=== PATIENT | female | born 1960 | race African-American/Black ===

== ENCOUNTER → 2016-09-23 | Outpatient (CLI) | payer BC ==
[2016-09-23 09:29] LABS: ABSOLUTE BASOPHILS # (AUTO) 0.1 10^3/uL (0.0-0.2); ABSOLUTE EOSINOPHILS # (AUTO) 0.4 10^3/uL (0.0-0.6); ABSOLUTE LYMPHOCYTES (AUTO) 2.6 10^3/uL (0.5-4.7); ABSOLUTE MONOCYTES (AUTO) 0.4 10^3/uL (0.1-1.4); ABSOLUTE NEUT (AUTO) 2.6 10^3/uL (1.7-8.2); BASOPHILS % (AUTO) 0.9 % (0-2); EOSINOPHILS % (AUTO) 7.1 % (0-6); HEMATOCRIT 39.7 % (36.0-47.0); HGB HCT DIFFERENCE -0.7; LYMPHOCYTES % (AUTO) 42.6 % (13-45); MEAN CORPUSCULAR HEMOGLOBIN 29.7 pg (27.0-33.4); MEAN CORPUSCULAR HGB CONC 32.6 g/dL (32.0-36.0); MEAN CORPUSCULAR VOLUME 91 fl (80-97); MONOCYTES % (AUTO) 6.7 % (3-13); RED BLOOD COUNT 4.36 10^6/uL (3.72-5.28); RED CELL DISTRIBUTION WIDTH 15.3 % (11.5-14.0); SEGMENTED NEUTROPHILS % (AUTO) 42.7 % (42-78)
[2016-09-23 09:49] LABS: ALANINE AMINOTRANSFERASE 37 U/L (9-52); ALBUMIN 4.2 g/dL (3.5-5.0); ALKALINE PHOSPHATASE 71 U/L (38-126); ANION GAP 12 (5-19); ASPARTATE AMINO TRANSFERASE 22 U/L (14-36); BILIRUBIN,TOTAL 0.4 mg/dL (0.2-1.3); BLOOD UREA NITROGEN 22 mg/dL (7-20); CALCIUM 9.7 mg/dL (8.4-10.2); CARBON DIOXIDE 28 mmol/L (22-30); CHLORIDE 102 mmol/L (98-107); CHOLESTEROL 200.28 mg/dL (0-200); CREATININE RESULT 0.59 mg/dL (0.52-1.25); Direct HDL 52 mg/dL (>40); GLUCOSE 149 mg/dL (75-110); POTASSIUM 4.6 mmol/L (3.6-5.0); SODIUM 142.1 mmol/L (137-145); TOTAL PROTEIN 7.3 g/dL (6.3-8.2); TRIGLYCERIDES 125 mg/dL (<150)
[2016-09-23 10:19] LABS: DIRECT LDL 116 mg/dL (<100)
== END ==
LOC: OD 08:29
PROVIDERS: ATTEND Internal Medicine Geriatric Medicine
DX: I10 Essential (primary) hypertension (principal); E78.5 Hyperlipidemia, unspecified; E11.9 Type 2 diabetes mellitus without complications
CPT/HCPCS: 36415; 80053; 80061; 83036; 85025

== ENCOUNTER 2020-06-25 09:17 | Inpatient (IN) | payer SELFPAY ==
[2020-06-25] MEDS ORDERED: NORMAL SALINE 1000 ML 1,000 ML IV ONE ×2 (09:38→10:56)
--- NOTE | 2020-06-25 10:09 | RADIOLOGY REPORT (SQ) ---
EXAM DESCRIPTION: CHEST SINGLE VIEW IMAGES COMPLETED DATE/TIME: 06/25/2020 9:59 am REASON FOR STUDY: sob COMPARISON: None. EXAM PARAMETERS: NUMBER OF VIEWS: One view. TECHNIQUE: Single frontal radiographic view of the chest acquired. RADIATION DOSE: NA LIMITATIONS: None. FINDINGS: LUNGS AND PLEURA: No opacities, masses or pneumothorax. No pleural effusion. MEDIASTINUM AND HILAR STRUCTURES: No masses. Contour normal. HEART AND VASCULAR STRUCTURES: Heart normal in size. Normal vasculature. BONES: No acute findings. HARDWARE: None in the chest. OTHER: No other significant finding. IMPRESSION: NO ACUTE RADIOGRAPHIC FINDING IN THE CHEST. TECHNICAL DOCUMENTATION: JOB ID: [id number] 2010 [employer]- All Rights Reserved Reading location - IP/workstation name: [email or web address]
[2020-06-25 10:11] LABS: ABSOLUTE LYMPHOCYTES (AUTO) 1.5 10^3/uL (0.5-4.7); ABSOLUTE MONOCYTES (AUTO) 0.8 10^3/uL (0.1-1.4); ABSOLUTE NEUT (AUTO) 9.9 10^3/uL (1.7-8.2); BASOPHILS % (AUTO) 0.3 % (0-2); HEMOGLOBIN 17.5 g/dL (12.0-15.5); LYMPHOCYTES % (AUTO) 12.4 % (13-45); MEAN CORPUSCULAR HEMOGLOBIN 30.2 pg (27.0-33.4); MEAN CORPUSCULAR HGB CONC 31.7 g/dL (32.0-36.0); MEAN CORPUSCULAR VOLUME 95 fl (80-97); MONOCYTES % (AUTO) 6.4 % (3-13); PLATELET COUNT 293 10^3/uL (150-450); RED CELL DISTRIBUTION WIDTH 15.1 % (11.5-14.0); SEGMENTED NEUTROPHILS % (AUTO) 80.9 % (42-78); TOTAL CELLS COUNTED % (AUTO) 100 %; WHITE BLOOD COUNT 12.2 10^3/uL (4.0-10.5)
[2020-06-25 10:13] LABS: HEMATOCRIT 55.3 % (36.0-47.0); VENOUS BLOOD BASE EXCESS -1.5 mmol/L; VENOUS BLOOD HCO3 23.5 mmol/L (20-32); VENOUS BLOOD PCO2 40.8 mmHg (35-63); VENOUS BLOOD PH 7.38 (7.30-7.42)
[2020-06-25 10:31] LABS: ALBUMIN 4.8 g/dL (3.5-5.0); ALKALINE PHOSPHATASE 173 U/L (38-126); ASPARTATE AMINO TRANSFERASE 23 U/L (14-36); BILIRUBIN,DIRECT 0.4 mg/dL (0.0-0.4); BILIRUBIN,TOTAL 0.8 mg/dL (0.2-1.3); BLOOD UREA NITROGEN 35 mg/dL (7-20); CALCIUM 11.4 mg/dL (8.4-10.2); POTASSIUM 4.8 mmol/L (3.6-5.0); TOTAL PROTEIN 9.3 g/dL (6.3-8.2)
[2020-06-25 10:43] LABS: CARBON DIOXIDE 20 mmol/L (22-30); CHLORIDE 106 mmol/L (98-107)
[2020-06-25 10:49] LABS: ANION GAP 26 (5-19)
[2020-06-25 11:24] LABS: GLUCOSE 856 mg/dL (75-110)
[2020-06-25] MEDS ORDERED: NORMAL SALINE 100 ML with INSULIN REGULAR, HUMAN 100 UNIT IV PRN ×2 (11:25)
--- NOTE | 2020-06-25 11:32 | ER Document Report ---
ED General - General Chief Complaint: Shortness Of Breath Stated Complaint: DIFFICULTY BREATHING Time Seen by Provider: 06/25/20 09:29 Primary Care Provider: BETHEL ARCHER MD [Primary Care Provider] - Follow up as needed Mode of Arrival: Ambulatory Information source: Patient TRAVEL OUTSIDE OF THE [place] IN LAST 30 DAYS: No - HPI Notes: Patient arrives complaining of fatigue and weakness. She states she is also had diarrhea and some nausea. In addition patient states she has felt somewhat short of breath. She denies any fevers. She states she has not been exposed to anybody with the Covid virus that she knows of. She denies any pain. She denies any history of diabetes. Her fatigue has been constant and severe. Is worse with exertion and better with rest. No cough or cold symptoms. No pain with urination. - Related Data Allergies/Adverse Reactions: No Known Allergies Allergy (Verified 06/25/20 10:11) Past Medical History - General Information source: Patient - Social History Smoking Status: Never Smoker Frequency of alcohol use: None Drug Abuse: None Family History: Reviewed & Not Pertinent Patient has homicidal ideation: No - Past Medical History Cardiac Medical History: Reports: Hx Hypertension Denies: Hx Coronary Artery Disease, Hx Heart Attack Pulmonary Medical History: Denies: Hx Asthma, Hx Bronchitis, Hx COPD, Hx Pneumonia Neurological Medical History: Denies: Hx Cerebrovascular Accident, Hx Seizures Endocrine Medical History: Reports: Hx Diabetes Mellitus Type 2 GI Medical History: Denies: Hx Hepatitis Musculoskeletal Medical History: Denies Hx Arthritis Infectious Medical History: Denies: Hx Hepatitis, Hx HIV, Hx MRSA Past Surgical History: Reports: Hx Section. Denies: Hx Hysterectomy - Immunizations Immunizations up to date: Yes Hx Diphtheria, Pertussis, Tetanus Vaccination: Yes - years ago Review of Systems - Review of Systems Constitutional: Malaise, Weakness. denies: Chills, Fever Cardiovascular: denies: Chest pain, Palpitations Respiratory: Short of breath. denies: Cough -: Yes All other systems reviewed and negative Physical Exam - Vital signs Vitals: Pulse Ox 95 06/25/20 09:19 Interpretation: Normal - General General appearance: Alert, Anxious - HEENT Head: Normocephalic, Atraumatic Eyes: Normal Pupils: PERRL - Respiratory Respiratory status: Tachypnea Chest status: Nontender Breath sounds: Normal Chest palpation: Normal - Cardiovascular Rhythm: Tachycardia Heart sounds: Normal auscultation Murmur: No - Abdominal Inspection: Normal Distension: No distension Bowel sounds: Normal Tenderness: Nontender Organomegaly: No organomegaly - Back Back: Normal, Nontender - Extremities General upper extremity: Normal inspection, Nontender, Normal color, Normal ROM, Normal temperature General lower extremity: Normal inspection, Nontender, Normal color, Normal ROM, Normal temperature, Normal weight bearing. No: Palmer's sign - Neurological Neuro grossly intact: Yes Cognition: Normal Orientation: AAOx4 [place] Coma Scale Eye Opening: Spontaneous [place] Coma Scale Verbal: Oriented [place] Coma Scale Motor: Obeys Commands [place] Coma Scale Total: 15 Speech: Normal Motor strength normal: LUE, RUE, LLE, RLE Sensory: Normal - Psychological Associated symptoms: Normal affect, Normal mood - Skin Skin Temperature: Warm Skin Moisture: Dry Skin Color: Normal Course - Re-evaluation Re-evalutation: 06/25/20 11:33 Patient presents with a primary complaint of weakness and fatigue. Work-up is remarkable for a significantly elevated blood glucose and patient appears to be a new onset diabetic with some early diabetic ketoacidosis. Patient's pH is normal however she is showing a elevated anion gap with a depressed serum bicarb. Patient be started on aggressive fluid replacement as well as an insulin drip. I have contacted the patient's primary doctor who will admit the patient. No obvious infection is present at this time however a urine is pending. - Vital Signs Vital signs: Temp Pulse Resp BP Pulse Ox 97.4 F 121 H 22 H 115/87 H 95 06/25/20 09:30 06/25/20 09:30 06/25/20 09:30 06/25/20 09:30 06/25/20 09:55 - Laboratory Results Result Diagrams: 06/25/20 09:50 06/25/20 09:50 Laboratory Results Interpreted: 06/25/20 06/25/20 06/25/20 09:50 09:50 09:50 WBC 12.2 H RBC 5.80 H Hgb 17.5 H Hct 55.3 H MCHC 31.7 L RDW 15.1 H Lymph % (Auto) 12.4 L Absolute Neuts (auto) 9.9 H Seg Neutrophils % 80.9 H Sodium 151.7 H Carbon Dioxide 20 L Anion Gap 26 H BUN 35 H Glucose 856 H* Lactic Acid 3.2 H Calcium 11.4 H Alkaline Phosphatase 173 H Total Protein 9.3 H Critical Laboratory Results Reviewed: Yes Attending or Supervising Physician who Reviewed Labs: JUAN HASSAN - Radiology Results Radiology Results Interpreted: 06/25/20 11:34 Chest x-ray shows no evidence of infiltrates Critical Radiology Results Reviewed: No Critical Results - EKG Interpretation by Ks EKG shows normal: Sinus rhythm Rate: Tachycardia - 109 Rhythm: NSR Lamy/QRS: No: Right axis deviation, Left axis deviation Critical Care Note - Critical Care Note Total time excluding time spent on procedures (mins): 40 Comments: Approximately 40 minutes of critical care time were spent on this patient with new onset diabetic ketoacidosis and an elevated blood sugar over 800. This time was spent reviewing old records. It was spent talking with biometrics consultant. It is spent during multiple reassessments. It was spent reviewing laboratory values and imaging. Discharge - Discharge Clinical Impression: DKA (diabetic ketoacidoses) Qualifiers: Diabetes mellitus type: type 2 Diabetes mellitus complication detail: without coma Qualified Code(s): E11.10 - Type 2 diabetes mellitus with ketoacidosis without coma Condition: Serious Disposition: ADMITTED INPATIENT Admitting Provider: Jaime Unit Admitted: IMCU Referrals: BETHEL ARCHER MD [Primary Care Provider] - Follow up as needed
--- NOTE | 2020-06-25 11:42 | RADIOLOGY REPORT (SQ) ---
EXAM DESCRIPTION: CT CHEST WITHOUT IMAGES COMPLETED DATE/TIME: 06/25/2020 11:28 am REASON FOR STUDY: sob COMPARISON: Same day radiograph TECHNIQUE: CT scan performed of the chest without intravenous contrast. Images reviewed with lung, soft tissue and bone windows. Reconstructed coronal and sagittal MPR images reviewed. All images st ored on PACS. All CT scanners at this facility use dose modulation, iterative reconstruction, and/or weight based d osing when appropriate to reduce radiation dose to as low as reasonably achievable (ALARA). [facility]: Dose Right [facility]: CareDose [facility]: Dose Right [facility]: Teradose 4D [facility]: TopTechPhoto RADIATION DOSE: CT Rad equipment meets quality standard of care and radiation dose reduction techniq ues were employed. CTDIvol: 5.3 mGy. DLP: 197 mGy-cm. mGy. LIMITATIONS: No technical limitations. FINDINGS: LUNGS AND PLEURA: No masses, infiltrates, or pneumothorax. No pleural effusions or pleura l calcifications. No suspicious nodules or masses. Few sub 4 mm nonspecific nodular opacities. For reference 3 mm left basilar nodule (series 4, image 47). These require no follow-up. HILAR AND MEDIASTINAL STRUCTURES: No identified masses or abnormal nodes. No obvious aneurysm. HEART AND VASCULAR STRUCTURES: No aneurysm. No pericardial effusion. UPPER ABDOMEN: 3.1 cm hypodense lesion within the hepatic dome, indeterminate. There is a focus of c alcification along the periphery. No other acute findings. THYROID AND OTHER SOFT TISSUES: No masses. No adenopathy. BONES: No acute bony abnormality. No suspicious osseous lesions. HARDWARE: None in the chest. OTHER: No other significant findings. IMPRESSION: 1. No evidence of acute intrathoracic process. 2. 3.1 cm hypodense lesion within the right hepatic dome, indeterminate. Comparison with priors if available or multiphase CT or MR could be considered for complete characterization. TECHNICAL DOCUMENTATION: JOB ID: [id number] Quality ID # [id number]: Final reports with documentation of one or more dose reduction techniques (e.g., Au tomated exposure control, adjustment of the mA and/or kV according to patient size, use of iterative reconstruction technique) 2010 [employer]- All Rights Reserved Reading location - IP/workstation name: [email or web address]
[2020-06-25] MEDS ORDERED: INSULIN REG, HUMAN 100 UNIT/ML 3 ML VIAL (PYX) ONE ×2 (12:08→22:49)
[2020-06-25 13:11] LABS: APPEARANCE,URINE CLEAR; BILIRUBIN,URINE NEGATIVE (NEGATIVE); COLOR,URINE LIGHT YELLOW; GLUCOSE, URINE >=1000 mg/dL (NEGATIVE); KETONES,URINE 100 mg/dL (NEGATIVE); PROTEIN,URINE NEGATIVE (NEGATIVE); URINE SPECIFIC GRAVITY 1.038; UROBILINOGEN,URINE NEGATIVE mg/dL (<2.0)
[2020-06-25 13:12] LABS: RBC,URINE 0-1 /HPF
[2020-06-25] MEDS ORDERED: DEXTROSE 50%-WATER 25 GM/50 ML DISP.SYRIN IV PRN ×2 (17:25)
[2020-06-25] MEDS ORDERED: GLUCAGON,HUMAN RECOMB 1 MG INJ IM PRN (17:25)
[2020-06-25] MEDS ORDERED: DEXTROSE 40% GEL 15 GM TUBE PO PRN ×2 (17:25)
--- NOTE | 2020-06-25 17:51 | PDOC H&P ---
History of Present Illness Admission Date/PCP: 06/25/20 12:29 [facility] Patient complains of: Difficulty with breathing History of Present Illness: PIETER FAUSTIN is a 59 year old female patient known to my practice but noncompliant with follow up management evaluation for hypertension and diabetes mellitus type 2 last seen in the office June,. She presented to the ED with several days of worsening generalized weakness, fatigue, nausea, and d iarrhea. She denied any definite abdominal pain or associated vomiting. No fever or chills. No dysuria, urinary frequency, hematuria, or flank pain. She denied any chest pain but reported shortness of breath that worsen with efforts and improved with rest. She denied any palpitation. She denied any cough, nasal or sinus congestion. No associated headache or dizziness but admitted to redness of her eyes that she related to her eye condition for which she is currently using prescribed eye drops. Her initial ED evaluation was significant for severe hyperglycemia with elevated anion gap suggestive diabetic ketoacidosis. There was associated elevated lactic acidosis, electrolyte derangement, leukocytosis, and abnormal urinalysis. She denied exposure to person with acute illness or exposure to COVID-19. Her rapid COVID-19 serology evaluation was reported negative. She was advised hospitalization for further evaluation and management. Her morbidities are as listed below. Past Medical History Cardiac Medical History: Reports: Hypertension Denies: Coronary Artery Disease, Myocardial Infarction Pulmonary Medical History: Denies: Asthma, Bronchitis, Chronic Obstructive Pulmonary Disease (COPD), Pneumonia Neurological Medical History: Denies: Seizures Endocrine Medical History: Reports: Diabetes Mellitus Type 2 GI Medical History: Denies: Hepatitis Musculoskeltal Medical History: Denies: Arthritis Psychiatric Medical History: Denies: Depression Hematology: Reports: Anemia - hx Infectious Medical History: Denies: HIV, Methicillin-Resistant Staph Aureus Past Surgical History Past Surgical History: Reports: Section Denies: Hysterectomy Social History Smoking Status: Never Smoker Frequency of Alcohol Use: None - Advance Directive Resuscitation Status: Full Code Family History Family History: Reviewed & Not Pertinent Parental Family History Reviewed: Yes Children Family History Reviewed: Yes Sibling(s) Family History Reviewed.: Yes Medication/Allergy Home Medications: Lisinopril/Hydrochlorothiazide [Lisinopril-Hctz 10-12.5 mg Tab] 1 each PO DAILY 08/14/14 Simvastatin 20 mg PO QHS 08/14/14 Glimepiride [Amaryl 4 mg Tablet] 4 mg PO DAILY 06/25/20 Latanoprost [Xalatan 0.005% Oph Soln 2.5 ml] 1 drop OU QHS 06/25/20 Loratadine [Claritin] 10 mg PO DAILY 06/25/20 Metformin HCl [Glucophage 500 mg Tablet] 1,000 mg PO BID 06/25/20 Timolol Maleate/Pf [Timolol Maleate 0.5% Eye Drop] 1 drop OU DAILY 06/25/20 Allergies/Adverse Reactions: No Known Allergies Allergy (Verified 06/25/20 10:11) Review of Systems Constitutional: PRESENT: fatigue, weakness. ABSENT: chills, fever(s), headache(s), weight gain, weight loss Eyes: ABSENT: visual disturbances Ears: ABSENT: hearing changes Nose, Mouth, and Throat: ABSENT: headache(s), sore throat Cardiovascular: PRESENT: dyspnea on exertion. ABSENT: chest pain, edema, orthropnea, palpitations Respiratory: PRESENT: dyspnea. ABSENT: cough, hemoptysis Gastrointestinal: PRESENT: diarrhea, nausea. ABSENT: abdominal pain, constipation, hematemesis, hematochezia, vomiting Genitourinary: ABSENT: dysuria, hematuria Musculoskeletal: ABSENT: joint swelling Integumentary: ABSENT: rash, wounds Neurological: ABSENT: abnormal gait, abnormal speech, confusion, dizziness, focal weakness, syncope Psychiatric: ABSENT: anxiety, depression, homidical ideation, suicidal ideation Endocrine: ABSENT: cold intolerance, heat intolerance, polydipsia, polyuria Hematologic/Lymphatic: ABSENT: easy bleeding, easy bruising, lymphadenopathy Allergic/Immunologic: ABSENT: seasonal rhinorrhea Physical Exam Vital Signs: Temp Pulse Resp BP Pulse Ox 98.2 F 104 H 16 115/76 100 06/25/20 13:39 06/25/20 13:39 06/25/20 13:39 06/25/20 13:39 06/25/20 13:39 Intake & Output 06/24/20 06/25/20 06/26/20 06:59 06:59 06:59 Intake Total 2019 Balance 2019 Weight 62.5 kg General appearance: PRESENT: no acute distress, well-developed, well-nourished Head exam: PRESENT: atraumatic, normocephalic Eye exam: PRESENT: conjunctival injection, EOMI, PERRLA. ABSENT: scleral icterus Ear exam: PRESENT: normal external ear exam Mouth exam: PRESENT: moist, tongue midline Neck exam: PRESENT: full ROM. ABSENT: carotid bruit, JVD, lymphadenopathy, thyromegaly Respiratory exam: PRESENT: clear to auscultation christian Cardiovascular exam: PRESENT: RRR, +S1, +S2. ABSENT: diastolic murmur, rubs, systolic murmur Pulses: PRESENT: normal dorsalis pedis pul, +2 pedal pulses bilateral Vascular exam: PRESENT: normal capillary refill GI/Abdominal exam: PRESENT: normal bowel sounds, soft. ABSENT: distended, guarding, mass, organolmegaly, rebound, tenderness Rectal exam: PRESENT: deferred Extremities exam: ABSENT: pedal edema Neurological exam: PRESENT: alert, awake, oriented to person, oriented to place, oriented to time, oriented to situation, CN II-XII grossly intact. ABSENT: motor sensory deficit Psychiatric exam: PRESENT: appropriate affect, normal mood. ABSENT: homicidal ideation, suicidal ideation Skin exam: PRESENT: dry, intact, warm. ABSENT: cyanosis, rash Results Laboratory Results: 06/25/20 09:50 06/25/20 09:50 06/25/20 06/25/20 06/25/20 09:50 09:50 09:50 WBC 12.2 H RBC 5.80 H Hgb 17.5 H Hct 55.3 H MCV 95 MCH 30.2 MCHC 31.7 L RDW 15.1 H Plt Count 293 Seg Neutrophils % 80.9 H VBG pH 7.38 VBG pCO2 40.8 VBG HCO3 23.5 VBG Base Excess -1.5 Sodium 151.7 H Potassium 4.8 Chloride 106 Carbon Dioxide 20 L Anion Gap 26 H BUN 35 H Creatinine 0.81 Est GFR ( Amer) > 60 Glucose 856 H* Lactic Acid Calcium 11.4 H Total Bilirubin 0.8 AST 23 Alkaline Phosphatase 173 H Total Protein 9.3 H Albumin 4.8 Urine Color Urine Appearance Urine pH Ur Specific [place] Urine Protein Urine Glucose (UA) Urine Ketones Urine Blood Ur Squamous Epith Cells 06/25/20 06/25/20 06/25/20 09:50 11:37 12:37 WBC RBC Hgb Hct MCV MCH MCHC RDW Plt Count Seg Neutrophils % VBG pH VBG pCO2 VBG HCO3 VBG Base Excess Sodium Potassium Chloride Carbon Dioxide Anion Gap BUN Creatinine Est GFR ( Amer) Glucose Lactic Acid 3.2 H 1.6 Calcium Total Bilirubin AST Alkaline Phosphatase Total Protein Albumin Urine Color LIGHT YELLOW Urine Appearance CLEAR Urine pH 6.0 Ur Specific [place] 1.038 Urine Protein NEGATIVE Urine Glucose (UA) >=1000 H Urine Ketones 100 H Urine Blood NEGATIVE Ur Squamous Epith Cells FEW 06/25/20 16:05 WBC RBC Hgb Hct MCV MCH MCHC RDW Plt Count Seg Neutrophils % VBG pH VBG pCO2 VBG HCO3 VBG Base Excess Sodium Potassium Chloride Carbon Dioxide Anion Gap BUN Creatinine Est GFR ( Amer) Glucose Lactic Acid 1.3 Calcium Total Bilirubin AST Alkaline Phosphatase Total Protein Albumin Urine Color Urine Appearance Urine pH Ur Specific [place] Urine Protein Urine Glucose (UA) Urine Ketones Urine Blood Ur Squamous Epith Cells 06/25/20 06/25/20 09:50 09:50 Troponin I < 0.012 NT-Pro-B Natriuret Pep 119 Impressions: Chest X-Ray 06/25/20 09:35 IMPRESSION: NO ACUTE RADIOGRAPHIC FINDING IN THE CHEST. Chest CT 06/25/20 10:29 IMPRESSION: 1. No evidence of acute intrathoracic process. 2. 3.1 cm hypodense lesion within the right hepatic dome, indeterminate. Comparison with priors if available or multiphase CT or MR could be considered for complete characterization. Assessment & Plan - Diagnosis (1) DKA (diabetic ketoacidoses) Qualifiers: Diabetes mellitus type: type 2 Diabetes mellitus complication detail: without coma Qualified Code(s): E11.10 - Type 2 diabetes mellitus with ketoacidosis without coma Is this a current diagnosis for this admission?: Yes Plan: See admitting attending physician orders for details about care plan. (2) Diabetes mellitus type 2 in nonobese Is this a current diagnosis for this admission?: Yes Plan: See admitting attending physician orders for details about care plan. (3) HTN (hypertension) Qualifiers: Hypertension type: essential hypertension Qualified Code(s): I10 - Essential (primary) hypertension Is this a current diagnosis for this admission?: Yes Plan: See admitting attending physician orders for details about care plan. (4) Glaucoma Qualifiers: Primary angle closure glaucoma type: unspecified type Laterality: bilateral Is this a current diagnosis for this admission?: Yes Plan: See admitting attending physician orders for details about care plan. - Time Time Spent: 50 to 70 Minutes Medications reviewed and adjusted accordingly: Yes Anticipated Discharge Disposition: Home, Self Care Anticipated Discharge Timeframe: within 72 hours - Inpatient Certification Based on my medical assessment, after consideration of the patient's comorbidities, presenting symptoms, or acuity I expect that the services needed warrant INPATIENT care.: Yes I certify that my determination is in accordance with my understanding of Medicare's requirements for reasonable and necessary INPATIENT services [42 CFR 412.3e].: Yes Medical Necessity: Significant Comorbidiites Make Outpatient Treatment Too Risky, Need Close Monitoring Due to Risk of Patient Decompensation, Need For IV Fluids, Need For Continuous Telemetry Monitoring, Risk of Complication if Not Cared For in Hospital, Risk of Diagnosis Which Will Require Inpatient Eval/Care/Monitoring Post Hospital Care: D/C Communications Technologist Documentation - Plan Summary Plan Summary: See admitting attending physician orders for details about care plan.
[2020-06-25] MEDS: NORMAL SALINE 1000 ML 1,000 ML IV PRN (18:40)
--- NOTE | 2020-06-25 18:45 | EKG REPORT ---
SEVERITY:- ABNORMAL ECG - SINUS TACHYCARDIA RIGHT ATRIAL ABNORMALITY PROBABLE LVH WITH SECONDARY REPOL ABNRM : Confirmed by: Nehal Arguello 25-Jun-2020 18:44:45
[2020-06-25] MEDS: SIMVASTATIN 10 MG TABLET PO SCH (21:03)
[2020-06-25] MEDS: LATANOPROST 0.005% OPH SOLN 2.5 ML OU SCH (21:04)
[2020-06-26 00:11] LABS: ALBUMIN 4.1 g/dL (3.5-5.0); ALKALINE PHOSPHATASE 107 U/L (38-126); ANION GAP 6 (5-19); ASPARTATE AMINO TRANSFERASE 16 U/L (14-36); BILIRUBIN,DIRECT 0.1 mg/dL (0.0-0.4); BILIRUBIN,TOTAL 0.6 mg/dL (0.2-1.3); BLOOD UREA NITROGEN 35 mg/dL (7-20); CALCIUM 10.3 mg/dL (8.4-10.2); CARBON DIOXIDE 29 mmol/L (22-30); CHLORIDE 122 mmol/L (98-107); GLUCOSE 121 mg/dL (75-110); TOTAL PROTEIN 7.9 g/dL (6.3-8.2)
[2020-06-26 00:20] LABS: POTASSIUM 3.4 mmol/L (3.6-5.0)
[2020-06-26] MEDS: PANTOPRAZOLE SODIUM 40 MG TABLET.DR PO SCH (06:14)
[2020-06-26] MEDS: NORMAL SALINE 1000 ML 1,000 ML IV PRN ×2 (06:14→14:16)
[2020-06-26 06:19] LABS: ABSOLUTE LYMPHOCYTES (AUTO) 2.4 10^3/uL (0.5-4.7); ABSOLUTE MONOCYTES (AUTO) 0.9 10^3/uL (0.1-1.4); ABSOLUTE NEUT (AUTO) 11.2 10^3/uL (1.7-8.2); BASOPHILS % (AUTO) 0.3 % (0-2); EOSINOPHILS % (AUTO) 0.2 % (0-6); HEMATOCRIT 46.4 % (36.0-47.0); LYMPHOCYTES % (AUTO) 16.4 % (13-45); MEAN CORPUSCULAR HEMOGLOBIN 29.8 pg (27.0-33.4); MEAN CORPUSCULAR HGB CONC 32.6 g/dL (32.0-36.0); MEAN CORPUSCULAR VOLUME 92 fl (80-97); PLATELET COUNT 219 10^3/uL (150-450); RED BLOOD COUNT 5.07 10^6/uL (3.72-5.28); RED CELL DISTRIBUTION WIDTH 14.6 % (11.5-14.0); SEGMENTED NEUTROPHILS % (AUTO) 77.1 % (42-78); TOTAL CELLS COUNTED % (AUTO) 100 %; WHITE BLOOD COUNT 14.5 10^3/uL (4.0-10.5)
[2020-06-26 06:28] LABS: ALBUMIN 3.8 g/dL (3.5-5.0); ALKALINE PHOSPHATASE 122 U/L (38-126); ANION GAP 14 (5-19); ASPARTATE AMINO TRANSFERASE 20 U/L (14-36); BILIRUBIN,DIRECT 0.3 mg/dL (0.0-0.4); BILIRUBIN,TOTAL 0.8 mg/dL (0.2-1.3); BLOOD UREA NITROGEN 39 mg/dL (7-20); CALCIUM 9.6 mg/dL (8.4-10.2); CARBON DIOXIDE 22 mmol/L (22-30); CHLORIDE 121 mmol/L (98-107); GLUCOSE 386 mg/dL (75-110); TOTAL PROTEIN 7.2 g/dL (6.3-8.2); TRIGLYCERIDES 116 mg/dL (<150)
[2020-06-26 06:32] LABS: HEMOGLOBIN 15.1 g/dL (12.0-15.5)
[2020-06-26 06:39] LABS: DIRECT LDL 206 mg/dL (<100)
[2020-06-26] MEDS: INSULIN LISPRO 100 UNIT/ML 3 ML VIAL SUBCUT SCH ×4 (08:38→21:22)
[2020-06-26] MEDS: ENOXAPARIN SODIUM INJ 40 MG/0.4 ML DISP.SYRIN SUBCUT SCH (09:21)
[2020-06-26] MEDS: TIMOLOL MALEATE 0.5% OPH SOLN 5 ML OU SCH (09:24)
[2020-06-26] MEDS ORDERED: [UNRECOGNIZED DRUG - OTHER] OU SCH (10:00)
[2020-06-26] MEDS ORDERED: TIMOLOL MALEATE OU SCH (10:00)
[2020-06-26] MEDS: CEFEPIME 1 GM/D5W RTU 1 GM/50 ML RTUPB IV SCH ×2 (10:30→21:21)
--- NOTE | 2020-06-26 14:28 | RADIOLOGY REPORT (SQ) ---
EXAM DESCRIPTION: CHEST 2 VIEWS IMAGES COMPLETED DATE/TIME: 06/26/2020 12:05 pm REASON FOR STUDY: DKA with worsening leukocytosis COMPARISON: 06/25/2020. EXAM PARAMETERS: NUMBER OF VIEWS: two views TECHNIQUE: Digital Frontal and Lateral radiographic views of the chest acquired. RADIATION DOSE: NA LIMITATIONS: none FINDINGS: LUNGS AND PLEURA: No opacities, masses or pneumothorax. No pleural effusion. MEDIASTINUM AND HILAR STRUCTURES: No masses or contour abnormalities. HEART AND VASCULAR STRUCTURES: Heart normal size. No evidence for failure. BONES: No acute findings. HARDWARE: None in the chest. OTHER: No other significant finding. IMPRESSION: NO ACUTE RADIOGRAPHIC FINDING IN THE CHEST. TECHNICAL DOCUMENTATION: JOB ID: [id number] 2010 [employer]- All Rights Reserved Reading location - IP/workstation name: [email or web address]
[2020-06-26] MEDS: METFORMIN HCL 500 MG TABLET PO SCH (18:06)
[2020-06-26] MEDS: LATANOPROST 0.005% OPH SOLN 2.5 ML OU SCH (21:22)
[2020-06-26] MEDS: SIMVASTATIN 10 MG TABLET PO SCH (21:23)
[2020-06-27] MEDS: PANTOPRAZOLE SODIUM 40 MG TABLET.DR PO SCH (05:10)
[2020-06-27] MEDS: NORMAL SALINE 1000 ML 1,000 ML IV PRN ×2 (05:12→21:11)
[2020-06-27] MEDS: INSULIN LISPRO 100 UNIT/ML 3 ML VIAL SUBCUT SCH ×4 (08:26→21:11)
[2020-06-27] MEDS: GLIMEPIRIDE 4 MG TABLET PO SCH (09:27)
[2020-06-27] MEDS: METFORMIN HCL 500 MG TABLET PO SCH ×2 (09:27→17:09)
[2020-06-27] MEDS: ENOXAPARIN SODIUM INJ 40 MG/0.4 ML DISP.SYRIN SUBCUT SCH (09:27)
[2020-06-27] MEDS: CEFEPIME 1 GM/D5W RTU 1 GM/50 ML RTUPB IV SCH ×2 (09:27→21:11)
[2020-06-27] MEDS: TIMOLOL MALEATE 0.5% OPH SOLN 5 ML OU SCH (10:00)
[2020-06-27] MEDS: SIMVASTATIN 10 MG TABLET PO SCH (21:12)
[2020-06-27] MEDS: LATANOPROST 0.005% OPH SOLN 2.5 ML OU SCH (21:13)
[2020-06-27] MEDS ORDERED: INSULIN GLARGINE,HUM.REC.ANLOG 1,000 UNIT/10 ML VIAL SUBCUT SCH (22:00)
[2020-06-28] MEDS: PANTOPRAZOLE SODIUM 40 MG TABLET.DR PO SCH (05:21)
[2020-06-28] MEDS: METFORMIN HCL 500 MG TABLET PO SCH ×2 (09:07→17:26)
[2020-06-28] MEDS: GLIMEPIRIDE 4 MG TABLET PO SCH (09:07)
[2020-06-28] MEDS: TIMOLOL MALEATE 0.5% OPH SOLN 5 ML OU SCH (09:10)
[2020-06-28] MEDS: INSULIN LISPRO 100 UNIT/ML 3 ML VIAL SUBCUT SCH ×4 (09:10→21:45)
[2020-06-28] MEDS: ENOXAPARIN SODIUM INJ 40 MG/0.4 ML DISP.SYRIN SUBCUT SCH (09:10)
[2020-06-28] MEDS: CEFEPIME 1 GM/D5W RTU 1 GM/50 ML RTUPB IV SCH ×2 (09:11→21:46)
[2020-06-28] MEDS: NORMAL SALINE 1000 ML 1,000 ML IV PRN ×2 (09:13→19:20)
--- NOTE | 2020-06-28 15:55 | PDOC PROGRESS REPORT ---
Subjective Date:: 06/26/20 Subjective:: No chest pain or difficulty with breathing. No nausea, vomiting, or abdominal pa in. Reported use of Exlax for bowel movement at home and possible cause of her associated diarrhea upon presentation. Reason For Visit: DKA; DMT2; HTN Physical Exam Vital Signs: Temp Pulse Resp BP Pulse Ox 98.5 F 98 14 120/86 H 97 06/26/20 08:04 06/26/20 07:00 06/26/20 08:00 06/26/20 08:00 06/26/20 08:00 Intake & Output 06/25/20 06/26/20 06/27/20 06:59 06:59 06:59 Intake Total 3741 Balance 3741 Weight 65 kg General appearance: PRESENT: no acute distress Head exam: PRESENT: atraumatic, normocephalic Eye exam: PRESENT: conjunctiva pink, EOMI, PERRLA. ABSENT: scleral icterus Ear exam: PRESENT: normal external ear exam Mouth exam: PRESENT: moist, tongue midline Neck exam: PRESENT: full ROM. ABSENT: carotid bruit, JVD, lymphadenopathy, thyromegaly Cardiovascular exam: PRESENT: RRR, +S1, +S2. ABSENT: diastolic murmur, rubs, systolic murmur Vascular exam: PRESENT: normal capillary refill. ABSENT: pallor GI/Abdominal exam: PRESENT: normal bowel sounds, soft. ABSENT: distended, guarding, mass, organolmegaly, rebound, tenderness Rectal exam: PRESENT: deferred Extremities exam: ABSENT: pedal edema Neurological exam: PRESENT: alert, awake, oriented to person, oriented to place, oriented to time, oriented to situation, CN II-XII grossly intact. ABSENT: motor sensory deficit Psychiatric exam: PRESENT: appropriate affect, normal mood. ABSENT: homicidal ideation, suicidal ideation Skin exam: PRESENT: dry, intact, warm. ABSENT: cyanosis, rash Results Laboratory Results: 06/26/20 05:02 06/26/20 05:02 06/25/20 06/25/20 06/25/20 09:50 09:50 09:50 WBC 12.2 H RBC 5.80 H Hgb 17.5 H Hct 55.3 H MCV 95 MCH 30.2 MCHC 31.7 L RDW 15.1 H Plt Count 293 Seg Neutrophils % 80.9 H VBG pH 7.38 VBG pCO2 40.8 VBG HCO3 23.5 VBG Base Excess -1.5 Sodium 151.7 H Potassium 4.8 Chloride 106 Carbon Dioxide 20 L Anion Gap 26 H BUN 35 H Creatinine 0.81 Est GFR ( Amer) > 60 Glucose 856 H* Lactic Acid Calcium 11.4 H Magnesium Total Bilirubin 0.8 AST 23 Alkaline Phosphatase 173 H Total Protein 9.3 H Albumin 4.8 Triglycerides Cholesterol LDL Cholesterol Direct VLDL Cholesterol HDL Cholesterol Urine Color Urine Appearance Urine pH Ur Specific Desha Urine Protein Urine Glucose (UA) Urine Ketones Urine Blood Ur Squamous Epith Cells 06/25/20 06/25/20 06/25/20 09:50 11:37 12:37 WBC RBC Hgb Hct MCV MCH MCHC RDW Plt Count Seg Neutrophils % VBG pH VBG pCO2 VBG HCO3 VBG Base Excess Sodium Potassium Chloride Carbon Dioxide Anion Gap BUN Creatinine Est GFR ( Amer) Glucose Lactic Acid 3.2 H 1.6 Calcium Magnesium Total Bilirubin AST Alkaline Phosphatase Total Protein Albumin Triglycerides Cholesterol LDL Cholesterol Direct VLDL Cholesterol HDL Cholesterol Urine Color LIGHT YELLOW Urine Appearance CLEAR Urine pH 6.0 Ur Specific Desha 1.038 Urine Protein NEGATIVE Urine Glucose (UA) >=1000 H Urine Ketones 100 H Urine Blood NEGATIVE Ur Squamous Epith Cells FEW 06/25/20 06/25/20 06/26/20 16:05 23:40 05:02 WBC 14.5 H RBC 5.07 Hgb 15.1 D Hct 46.4 MCV 92 MCH 29.8 MCHC 32.6 RDW 14.6 H Plt Count 219 Seg Neutrophils % 77.1 VBG pH VBG pCO2 VBG HCO3 VBG Base Excess Sodium 157.1 H Potassium 3.4 L D Chloride 122 H Carbon Dioxide 29 Anion Gap 6 BUN 35 H Creatinine 0.56 Est GFR ( Amer) > 60 Glucose 121 H Lactic Acid 1.3 Calcium 10.3 H Magnesium 2.7 H Total Bilirubin 0.6 AST 16 Alkaline Phosphatase 107 Total Protein 7.9 Albumin 4.1 Triglycerides Cholesterol LDL Cholesterol Direct VLDL Cholesterol HDL Cholesterol Urine Color Urine Appearance Urine pH Ur Specific Desha Urine Protein Urine Glucose (UA) Urine Ketones Urine Blood Ur Squamous Epith Cells 06/26/20 05:02 WBC RBC Hgb Hct MCV MCH MCHC RDW Plt Count Seg Neutrophils % VBG pH VBG pCO2 VBG HCO3 VBG Base Excess Sodium 156.8 H Potassium 4.0 Chloride 121 H Carbon Dioxide 22 Anion Gap 14 BUN 39 H Creatinine 0.67 Est GFR ( Amer) > 60 Glucose 386 H Lactic Acid Calcium 9.6 Magnesium Total Bilirubin 0.8 AST 20 Alkaline Phosphatase 122 Total Protein 7.2 Albumin 3.8 Triglycerides 116 Cholesterol 259.40 H LDL Cholesterol Direct 206 H VLDL Cholesterol 23.0 HDL Cholesterol 59 Urine Color Urine Appearance Urine pH Ur Specific Desha Urine Protein Urine Glucose (UA) Urine Ketones Urine Blood Ur Squamous Epith Cells 06/25/20 06/25/20 09:50 09:50 Troponin I < 0.012 NT-Pro-B Natriuret Pep 119 Impressions: Chest X-Ray 06/25/20 09:35 IMPRESSION: NO ACUTE RADIOGRAPHIC FINDING IN THE CHEST. Chest CT 06/25/20 10:29 IMPRESSION: 1. No evidence of acute intrathoracic process. 2. 3.1 cm hypodense lesion within the right hepatic dome, indeterminate. Comparison with priors if available or multiphase CT or MR could be considered for complete characterization. Assessment & Plan - Diagnosis (1) DKA (diabetic ketoacidoses) Qualifiers: Diabetes mellitus type: type 2 Diabetes mellitus complication detail: without coma Qualified Code(s): E11.10 - Type 2 diabetes mellitus with ketoacidosis without coma Is this a current diagnosis for this admission?: Yes (2) Diabetes mellitus type 2 in nonobese Is this a current diagnosis for this admission?: Yes (3) HTN (hypertension) Qualifiers: Hypertension type: essential hypertension Qualified Code(s): I10 - Essential (primary) hypertension Is this a current diagnosis for this admission?: Yes (4) Glaucoma Qualifiers: Primary angle closure glaucoma type: unspecified type Laterality: bilateral Is this a current diagnosis for this admission?: Yes - Time Time Spent with patient: 25-34 minutes Level of Care: IMCU Medications reviewed and adjusted accordingly: Yes Anticipated discharge: Home Anticipated DC Timeframe: within 72 hours - Inpatient Certification Based on my medical assessment, after consideration of the patient's comorbidities, presenting symptoms, or acuity I expect that the services needed warrant INPATIENT care.: Yes I certify that my determination is in accordance with my understanding of Medicare's requirements for reasonable and necessary INPATIENT services [42 CFR 412.3e].: Yes Medical Necessity: Significant Comorbidiites Make Outpatient Treatment Too Risky, Need Close Monitoring Due to Risk of Patient Decompensation, Need For IV Fluids, Need For Continuous Telemetry Monitoring, Risk of Complication if Not Cared For in Hospital, Risk of Diagnosis Which Will Require Inpatient Eval/Care/Monitoring Post Hospital Care: D/C Branch Chief Documentation - Plan Summary Plan Summary: Continue current medication management and fluid support.
--- NOTE | 2020-06-28 16:04 | PDOC PROGRESS REPORT ---
Subjective Date:: 06/27/20 Subjective:: No chest pain or difficulty with breathing. No nausea, vomiting, or abdominal pa in. Reason For Visit: DKA; DMT2; HTN Physical Exam Vital Signs: Temp Pulse Resp BP Pulse Ox 98.1 F 94 18 110/70 95 06/27/20 11:11 06/27/20 14:00 06/27/20 11:11 06/27/20 11:11 06/27/20 11:11 Intake & Output 06/26/20 06/27/20 06/28/20 06:59 06:59 06:59 Intake Total 3741 3327 476 Balance 3741 3327 476 Weight 65 kg 68 kg Physical Exam: General appearance: PRESENT: no acute distress Head exam: PRESENT: atraumatic, normocephalic Eye exam: PRESENT: conjunctiva pink ABSENT: pallor, sclera icterus Ear exam: PRESENT: normal external ear exam Mouth exam: PRESENT: moist, tongue midline Neck exam: PRESENT: full ROM. Cardiovascular exam: PRESENT: RRR, +S1, +S2. ABSENT: diastolic murmur, rubs, systolic murmur GI/Abdominal exam: PRESENT: normal bowel sounds, soft. ABSENT: distended, guarding, mass, organomegaly, rebound, tenderness Extremities exam: ABSENT: pedal edema Neurological exam: PRESENT: alert, awake, oriented to person, oriented to place, oriented to time, oriented to situation, CN II-XII grossly intact. ABSENT: motor sensory deficit Psychiatric exam: PRESENT: appropriate affect, normal mood. ABSENT: homicidal ideation, suicidal ideation Skin exam: PRESENT: dry, intact, warm. ABSENT: cyanosis, rash Results Laboratory Results: 06/26/20 05:02 06/26/20 05:02 06/25/20 12:37 Blood Blood Culture (PCR) - Final 06/25/20 06/25/20 09:50 09:50 Troponin I < 0.012 NT-Pro-B Natriuret Pep 119 Impressions: Chest CT 06/25/20 10:29 IMPRESSION: 1. No evidence of acute intrathoracic process. 2. 3.1 cm hypodense lesion within the right hepatic dome, indeterminate. Comparison with priors if available or multiphase CT or MR could be considered for complete characterization. Chest X-Ray 06/26/20 00:00 IMPRESSION: NO ACUTE RADIOGRAPHIC FINDING IN THE CHEST. Assessment & Plan - Diagnosis (1) DKA (diabetic ketoacidoses) Qualifiers: Diabetes mellitus type: type 2 Diabetes mellitus complication detail: without coma Qualified Code(s): E11.10 - Type 2 diabetes mellitus with ketoacidosis without coma Is this a current diagnosis for this admission?: Yes (2) Diabetes mellitus type 2 in nonobese Is this a current diagnosis for this admission?: Yes (3) HTN (hypertension) Qualifiers: Hypertension type: essential hypertension Qualified Code(s): I10 - Essential (primary) hypertension Is this a current diagnosis for this admission?: Yes (4) Glaucoma Qualifiers: Primary angle closure glaucoma type: unspecified type Laterality: bilateral Is this a current diagnosis for this admission?: Yes (5) Probable sepsis Is this a current diagnosis for this admission?: Yes Plan: worsening leukocytosis with persistent hyperglycemia as possible underlying precipitant for her DKA. Started on IV Cefepime pending culture findings. - Time Time Spent with patient: 25-34 minutes Level of Care: IMCU Medications reviewed and adjusted accordingly: Yes Anticipated discharge: Home Anticipated DC Timeframe: within 72 hours - Inpatient Certification Based on my medical assessment, after consideration of the patient's comorbidities, presenting symptoms, or acuity I expect that the services needed warrant INPATIENT care.: Yes I certify that my determination is in accordance with my understanding of Medicare's requirements for reasonable and necessary INPATIENT services [42 CFR 412.3e].: Yes Medical Necessity: Significant Comorbidiites Make Outpatient Treatment Too Risky, Need Close Monitoring Due to Risk of Patient Decompensation, Need For IV Fluids, Need For Continuous Telemetry Monitoring, Need for IV Antibiotics, Risk of Complication if Not Cared For in Hospital, Risk of Diagnosis Which Will Require Inpatient Eval/Care/Monitoring Post Hospital Care: D/C Park Activities Coordinator Documentation - Plan Summary Plan Summary: Continue current medication management. Follow up on culture findings.
--- NOTE | 2020-06-28 16:10 | PDOC PROGRESS REPORT ---
Subjective Date:: 06/28/20 Subjective:: No chest pain or difficulty with breathing. No nausea, vomiting, or abdominal pa in. Hyperglycemia persist with some improvement in her fasting reading thus morning. She was started on Lantus dosing at bedtime. Reason For Visit: DKA; DMT2; HTN Physical Exam Vital Signs: Temp Pulse Resp BP Pulse Ox 97.9 F 73 18 125/79 98 06/28/20 07:30 06/28/20 07:30 06/28/20 07:30 06/28/20 07:30 06/28/20 07:30 Intake & Output 06/27/20 06/28/20 06/29/20 06:59 06:59 06:59 Intake Total 3327 1836 1000 Balance 3327 1836 1000 Weight 68 kg 69.7 kg Physical Exam: General appearance: PRESENT: no acute distress Head exam: PRESENT: atraumatic, normocephalic Eye exam: PRESENT: conjunctiva pink ABSENT: pallor, sclera icterus Ear exam: PRESENT: normal external ear exam Mouth exam: PRESENT: moist, tongue midline Neck exam: PRESENT: full ROM. Cardiovascular exam: PRESENT: RRR, +S1, +S2. ABSENT: diastolic murmur, rubs, systolic murmur GI/Abdominal exam: PRESENT: normal bowel sounds, soft. ABSENT: distended, guarding, mass, organomegaly, rebound, tenderness Extremities exam: ABSENT: pedal edema Neurological exam: PRESENT: alert, awake, oriented to person, oriented to place, oriented to time, oriented to situation, CN II-XII grossly intact. ABSENT: motor sensory deficit Psychiatric exam: PRESENT: appropriate affect, normal mood. ABSENT: homicidal ideation, suicidal ideation Skin exam: PRESENT: dry, intact, warm. ABSENT: cyanosis, rash Results Laboratory Results: 06/26/20 05:02 06/26/20 05:02 06/25/20 12:37 Blood Blood Culture (PCR) - Final 06/25/20 06/25/20 09:50 09:50 Troponin I < 0.012 NT-Pro-B Natriuret Pep 119 Impressions: Chest CT 06/25/20 10:29 IMPRESSION: 1. No evidence of acute intrathoracic process. 2. 3.1 cm hypodense lesion within the right hepatic dome, indeterminate. Comparison with priors if available or multiphase CT or MR could be considered for complete characterization. Chest X-Ray 06/26/20 00:00 IMPRESSION: NO ACUTE RADIOGRAPHIC FINDING IN THE CHEST. Assessment & Plan - Diagnosis (1) DKA (diabetic ketoacidoses) Qualifiers: Diabetes mellitus type: type 2 Diabetes mellitus complication detail: without coma Qualified Code(s): E11.10 - Type 2 diabetes mellitus with ketoacidosis without coma Is this a current diagnosis for this admission?: Yes (2) Diabetes mellitus type 2 in nonobese Is this a current diagnosis for this admission?: Yes (3) HTN (hypertension) Qualifiers: Hypertension type: essential hypertension Qualified Code(s): I10 - Essential (primary) hypertension Is this a current diagnosis for this admission?: Yes (4) Glaucoma Qualifiers: Primary angle closure glaucoma type: unspecified type Laterality: bilateral Is this a current diagnosis for this admission?: Yes - Time Time Spent with patient: 25-34 minutes Level of Care: IMCU Medications reviewed and adjusted accordingly: Yes Anticipated discharge: Home Anticipated DC Timeframe: within 72 hours - Inpatient Certification Based on my medical assessment, after consideration of the patient's comorbidities, presenting symptoms, or acuity I expect that the services needed warrant INPATIENT care.: Yes I certify that my determination is in accordance with my understanding of Medicare's requirements for reasonable and necessary INPATIENT services [42 CFR 412.3e].: Yes Medical Necessity: Significant Comorbidiites Make Outpatient Treatment Too Risky, Need Close Monitoring Due to Risk of Patient Decompensation, Need For IV Fluids, Need For Continuous Telemetry Monitoring, Need for IV Antibiotics, Risk of Complication if Not Cared For in Hospital, Risk of Diagnosis Which Will Require Inpatient Eval/Care/Monitoring Post Hospital Care: D/C Helpdesk Manager Documentation - Plan Summary Plan Summary: Continue current medication management and antibiotic coverage. Increase Lantus insulin to 20 units bid acbs. Obtain CBC with diff and CMP in am.
[2020-06-28] MEDS: SIMVASTATIN 10 MG TABLET PO SCH (21:45)
[2020-06-28] MEDS: LATANOPROST 0.005% OPH SOLN 2.5 ML OU SCH (21:45)
[2020-06-28] MEDS: INSULIN GLARGINE,HUM.REC.ANLOG 1,000 UNIT/10 ML VIAL SUBCUT SCH (21:46)
[2020-06-29 05:45] LABS: ABSOLUTE EOSINOPHILS # (AUTO) 0.2 10^3/uL (0.0-0.6); ABSOLUTE LYMPHOCYTES (AUTO) 3.3 10^3/uL (0.5-4.7); ABSOLUTE MONOCYTES (AUTO) 0.4 10^3/uL (0.1-1.4); BASOPHILS % (AUTO) 0.6 % (0-2); EOSINOPHILS % (AUTO) 2.3 % (0-6); HEMATOCRIT 36.2 % (36.0-47.0); LYMPHOCYTES % (AUTO) 41.5 % (13-45); MEAN CORPUSCULAR HEMOGLOBIN 30.2 pg (27.0-33.4); MEAN CORPUSCULAR HGB CONC 33.1 g/dL (32.0-36.0); MEAN CORPUSCULAR VOLUME 91 fl (80-97); MONOCYTES % (AUTO) 4.4 % (3-13); PLATELET COUNT 146 10^3/uL (150-450); RED BLOOD COUNT 3.97 10^6/uL (3.72-5.28); RED CELL DISTRIBUTION WIDTH 14.3 % (11.5-14.0); SEGMENTED NEUTROPHILS % (AUTO) 51.2 % (42-78); TOTAL CELLS COUNTED % (AUTO) 100 %; WHITE BLOOD COUNT 7.9 10^3/uL (4.0-10.5)
[2020-06-29] MEDS: PANTOPRAZOLE SODIUM 40 MG TABLET.DR PO SCH (05:57)
[2020-06-29] MEDS: NORMAL SALINE 1000 ML 1,000 ML IV PRN ×2 (05:59→17:16)
[2020-06-29 06:15] LABS: ALBUMIN 2.6 g/dL (3.5-5.0); ALKALINE PHOSPHATASE 90 U/L (38-126); ANION GAP 6 (5-19); ASPARTATE AMINO TRANSFERASE 20 U/L (14-36); BILIRUBIN,DIRECT 0.2 mg/dL (0.0-0.4); BILIRUBIN,TOTAL 0.9 mg/dL (0.2-1.3); BLOOD UREA NITROGEN 16 mg/dL (7-20); CALCIUM 8.3 mg/dL (8.4-10.2); CARBON DIOXIDE 23 mmol/L (22-30); CHLORIDE 112 mmol/L (98-107); GLUCOSE 161 mg/dL (75-110); POTASSIUM 3.6 mmol/L (3.6-5.0); TOTAL PROTEIN 5.4 g/dL (6.3-8.2)
[2020-06-29] MEDS: INSULIN LISPRO 100 UNIT/ML 3 ML VIAL SUBCUT SCH ×4 (09:03→21:24)
[2020-06-29] MEDS: METFORMIN HCL 500 MG TABLET PO SCH ×2 (09:03→17:14)
[2020-06-29] MEDS: CEFEPIME 1 GM/D5W RTU 1 GM/50 ML RTUPB IV SCH ×2 (09:03→21:30)
[2020-06-29] MEDS: GLIMEPIRIDE 4 MG TABLET PO SCH (09:03)
[2020-06-29] MEDS: ENOXAPARIN SODIUM INJ 40 MG/0.4 ML DISP.SYRIN SUBCUT SCH (09:04)
[2020-06-29] MEDS: TIMOLOL MALEATE 0.5% OPH SOLN 5 ML OU SCH (09:09)
[2020-06-29] MEDS: INSULIN GLARGINE,HUM.REC.ANLOG 1,000 UNIT/10 ML VIAL SUBCUT SCH ×2 (10:34→21:29)
--- NOTE | 2020-06-29 16:37 | PDOC PROGRESS REPORT ---
Subjective Date:: 06/29/20 Subjective:: No chest pain or difficulty with breathing. No nausea, vomiting, or abdominal pa in. Reason For Visit: DKA; DMT2; HTN Physical Exam Vital Signs: Temp Pulse Resp BP Pulse Ox 98.4 F 90 17 125/89 H 97 06/29/20 10:00 06/29/20 13:59 06/29/20 07:26 06/29/20 07:26 06/29/20 07:26 Intake & Output 06/28/20 06/29/20 06/30/20 06:59 06:59 06:59 Intake Total 1836 5260 50 Balance 1836 5260 50 Weight 69.7 kg 70 kg Physical Exam: General appearance: PRESENT: no acute distress Head exam: PRESENT: atraumatic, normocephalic Eye exam: PRESENT: conjunctiva pink ABSENT: pallor, sclera icterus Mouth exam: PRESENT: moist Neck exam: PRESENT: full ROM. Cardiovascular exam: PRESENT: RRR, +S1, +S2. ABSENT: diastolic murmur, rubs, systolic murmur GI/Abdominal exam: PRESENT: normal bowel sounds, soft. ABSENT: distended, guarding, mass, organomegaly, rebound, tenderness Extremities exam: ABSENT: pedal edema Neurological exam: PRESENT: alert, awake, oriented to person, oriented to place, oriented to time, oriented to situation Psychiatric exam: PRESENT: appropriate affect, normal mood. ABSENT: homicidal ideation, suicidal ideation Skin exam: PRESENT: dry, intact, warm. ABSENT: cyanosis, rash Results Laboratory Results: 06/29/20 04:36 06/29/20 04:36 06/29/20 06/29/20 04:36 04:36 WBC 7.9 RBC 3.97 Hgb 12.0 D Hct 36.2 MCV 91 MCH 30.2 MCHC 33.1 RDW 14.3 H Plt Count 146 L Seg Neutrophils % 51.2 Sodium 140.9 Potassium 3.6 Chloride 112 H Carbon Dioxide 23 Anion Gap 6 BUN 16 Creatinine 0.41 L Est GFR ( Amer) > 60 Glucose 161 H Calcium 8.3 L Total Bilirubin 0.9 AST 20 Alkaline Phosphatase 90 Total Protein 5.4 L Albumin 2.6 L 06/25/20 12:37 Blood Blood Culture (PCR) - Final 06/25/20 12:37 Blood Blood Culture - Final Strep Anginosus Group Corynebacterium Species 06/25/20 06/25/20 09:50 09:50 Troponin I < 0.012 NT-Pro-B Natriuret Pep 119 Impressions: Chest CT 06/25/20 10:29 IMPRESSION: 1. No evidence of acute intrathoracic process. 2. 3.1 cm hypodense lesion within the right hepatic dome, indeterminate. Comparison with priors if available or multiphase CT or MR could be considered for complete characterization. Chest X-Ray 06/26/20 00:00 IMPRESSION: NO ACUTE RADIOGRAPHIC FINDING IN THE CHEST. Assessment & Plan - Diagnosis (1) DKA (diabetic ketoacidoses) Qualifiers: Diabetes mellitus type: type 2 Diabetes mellitus complication detail: without coma Qualified Code(s): E11.10 - Type 2 diabetes mellitus with ketoacidosis without coma Is this a current diagnosis for this admission?: Yes (2) Diabetes mellitus type 2 in nonobese Is this a current diagnosis for this admission?: Yes (3) HTN (hypertension) Qualifiers: Hypertension type: essential hypertension Qualified Code(s): I10 - Essential (primary) hypertension Is this a current diagnosis for this admission?: Yes (4) Glaucoma Qualifiers: Primary angle closure glaucoma type: unspecified type Laterality: bilateral Is this a current diagnosis for this admission?: Yes - Time Time Spent with patient: 25-34 minutes Level of Care: IMCU Medications reviewed and adjusted accordingly: Yes Anticipated discharge: Home with Homehealth Anticipated DC Timeframe: within 72 hours - Inpatient Certification Based on my medical assessment, after consideration of the patient's comorbidities, presenting symptoms, or acuity I expect that the services needed warrant INPATIENT care.: Yes I certify that my determination is in accordance with my understanding of Medicare's requirements for reasonable and necessary INPATIENT services [42 CFR 412.3e].: Yes Medical Necessity: Significant Comorbidiites Make Outpatient Treatment Too Risky, Need Close Monitoring Due to Risk of Patient Decompensation, Need For IV Fluids, Need For Continuous Telemetry Monitoring, Need for IV Antibiotics, Risk of Complication if Not Cared For in Hospital, Risk of Diagnosis Which Will Require Inpatient Eval/Care/Monitoring Post Hospital Care: D/C Hospice Care Transitions Coordinator Documentation - Plan Summary Plan Summary: Continue current medication management. Follow up on program services planner assistance in initiating medicaid assistance to cover her prescription medication. Her risk of readmission due to lack of access to prescribed medication upon discharge is very high.
[2020-06-29] MEDS: LATANOPROST 0.005% OPH SOLN 2.5 ML OU SCH (21:29)
[2020-06-29] MEDS: SIMVASTATIN 10 MG TABLET PO SCH (21:29)
[2020-06-30] MEDS: NORMAL SALINE 1000 ML 1,000 ML IV PRN ×2 (05:57→17:23)
[2020-06-30] MEDS: PANTOPRAZOLE SODIUM 40 MG TABLET.DR PO SCH (05:58)
[2020-06-30] MEDS: INSULIN LISPRO 100 UNIT/ML 3 ML VIAL SUBCUT SCH ×4 (08:17→21:24)
[2020-06-30] MEDS: METFORMIN HCL 500 MG TABLET PO SCH ×2 (09:24→17:23)
[2020-06-30] MEDS: ENOXAPARIN SODIUM INJ 40 MG/0.4 ML DISP.SYRIN SUBCUT SCH (09:24)
[2020-06-30] MEDS: INSULIN GLARGINE,HUM.REC.ANLOG 1,000 UNIT/10 ML VIAL SUBCUT SCH ×2 (09:24→21:16)
[2020-06-30] MEDS: CEFEPIME 1 GM/D5W RTU 1 GM/50 ML RTUPB IV SCH ×2 (09:25→21:16)
[2020-06-30] MEDS: TIMOLOL MALEATE 0.5% OPH SOLN 5 ML OU SCH (09:25)
--- NOTE | 2020-06-30 09:48 | PDOC PROGRESS REPORT ---
Subjective Date:: 06/30/20 Subjective:: No chest pain or difficulty with breathing. No nausea, vomiting, or abdominal pa in. Accuchek has improved significantly with current diabetic management regimen. Reason For Visit: DKA; DMT2; HTN Physical Exam Vital Signs: Temp Pulse Resp BP Pulse Ox 98.4 F 80 17 119/82 97 06/30/20 07:26 06/30/20 07:26 06/30/20 07:26 06/30/20 07:26 06/30/20 07:26 Intake & Output 06/29/20 06/30/20 07/01/20 06:59 06:59 06:59 Intake Total 5260 3150 Balance 5260 3150 Weight 70 kg 70.9 kg Physical Exam: General appearance: PRESENT: no acute distress Head exam: PRESENT: atraumatic, normocephalic Eye exam: PRESENT: conjunctiva pink ABSENT: pallor, sclera icterus Mouth exam: PRESENT: moist Neck exam: PRESENT: full ROM. Cardiovascular exam: PRESENT: RRR, +S1, +S2. ABSENT: diastolic murmur, rubs, systolic murmur GI/Abdominal exam: PRESENT: normal bowel sounds, soft. ABSENT: distended, guarding, mass, organomegaly, rebound, tenderness Extremities exam: ABSENT: pedal edema Neurological exam: PRESENT: alert, awake, oriented to person, oriented to place, oriented to time, oriented to situation Psychiatric exam: PRESENT: appropriate affect, normal mood. ABSENT: homicidal ideation, suicidal ideation Skin exam: PRESENT: dry, intact, warm. ABSENT: cyanosis, rash Results Laboratory Results: 06/29/20 04:36 06/29/20 04:36 06/25/20 06/25/20 09:50 09:50 Troponin I < 0.012 NT-Pro-B Natriuret Pep 119 Impressions: Chest CT 06/25/20 10:29 IMPRESSION: 1. No evidence of acute intrathoracic process. 2. 3.1 cm hypodense lesion within the right hepatic dome, indeterminate. Comparison with priors if available or multiphase CT or MR could be considered for complete characterization. Chest X-Ray 06/26/20 00:00 IMPRESSION: NO ACUTE RADIOGRAPHIC FINDING IN THE CHEST. Assessment & Plan - Diagnosis (1) DKA (diabetic ketoacidoses) Qualifiers: Diabetes mellitus type: type 2 Diabetes mellitus complication detail: without coma Qualified Code(s): E11.10 - Type 2 diabetes mellitus with ketoacidosis without coma Is this a current diagnosis for this admission?: Yes (2) Diabetes mellitus type 2 in nonobese Is this a current diagnosis for this admission?: Yes (3) HTN (hypertension) Qualifiers: Hypertension type: essential hypertension Qualified Code(s): I10 - Essential (primary) hypertension Is this a current diagnosis for this admission?: Yes (4) Glaucoma Qualifiers: Primary angle closure glaucoma type: unspecified type Laterality: bilateral Is this a current diagnosis for this admission?: Yes - Time Time Spent with patient: 25-34 minutes Level of Care: IMCU Anticipated discharge: Home Anticipated DC Timeframe: within 48 hours - Inpatient Certification Based on my medical assessment, after consideration of the patient's comorbidities, presenting symptoms, or acuity I expect that the services needed warrant INPATIENT care.: Yes I certify that my determination is in accordance with my understanding of Medicare's requirements for reasonable and necessary INPATIENT services [42 CFR 412.3e].: Yes Medical Necessity: Significant Comorbidiites Make Outpatient Treatment Too Risky, Need Close Monitoring Due to Risk of Patient Decompensation, Need For IV Fluids, Need For Continuous Telemetry Monitoring, Need for IV Antibiotics, Risk of Complication if Not Cared For in Hospital, Risk of Diagnosis Which Will Require Inpatient Eval/Care/Monitoring Post Hospital Care: D/C Tomography Technologist Documentation - Plan Summary Plan Summary: D/C Amaryl. Continue all other current medication management. Follow up on D/C logistics planner input with medicaid referral.
[2020-06-30] MEDS: LATANOPROST 0.005% OPH SOLN 2.5 ML OU SCH (21:15)
[2020-06-30] MEDS: SIMVASTATIN 10 MG TABLET PO SCH (21:15)
[2020-07-01] MEDS: NORMAL SALINE 1000 ML 1,000 ML IV PRN ×2 (04:37→15:06)
[2020-07-01] MEDS: PANTOPRAZOLE SODIUM 40 MG TABLET.DR PO SCH (05:50)
[2020-07-01] MEDS: INSULIN LISPRO 100 UNIT/ML 3 ML VIAL SUBCUT SCH ×4 (08:43→22:05)
[2020-07-01] MEDS: INSULIN GLARGINE,HUM.REC.ANLOG 1,000 UNIT/10 ML VIAL SUBCUT SCH ×2 (09:27→22:07)
[2020-07-01] MEDS: METFORMIN HCL 500 MG TABLET PO SCH ×2 (09:28→17:20)
[2020-07-01] MEDS: CEFEPIME 1 GM/D5W RTU 1 GM/50 ML RTUPB IV SCH ×2 (09:28→22:07)
[2020-07-01] MEDS: ENOXAPARIN SODIUM INJ 40 MG/0.4 ML DISP.SYRIN SUBCUT SCH (09:28)
[2020-07-01] MEDS: TIMOLOL MALEATE 0.5% OPH SOLN 5 ML OU SCH (09:28)
[2020-07-01] MEDS: LATANOPROST 0.005% OPH SOLN 2.5 ML OU SCH (22:07)
[2020-07-01] MEDS: SIMVASTATIN 10 MG TABLET PO SCH (22:08)
[2020-07-02] MEDS: NORMAL SALINE 1000 ML 1,000 ML IV PRN ×3 (01:19→21:19)
[2020-07-02] MEDS: PANTOPRAZOLE SODIUM 40 MG TABLET.DR PO SCH (05:29)
[2020-07-02] MEDS: INSULIN LISPRO 100 UNIT/ML 3 ML VIAL SUBCUT SCH ×4 (07:23→21:21)
[2020-07-02] MEDS: INSULIN GLARGINE,HUM.REC.ANLOG 1,000 UNIT/10 ML VIAL SUBCUT SCH ×2 (10:04→21:20)
[2020-07-02] MEDS: CEFEPIME 1 GM/D5W RTU 1 GM/50 ML RTUPB IV SCH ×2 (10:10→21:21)
[2020-07-02] MEDS: ENOXAPARIN SODIUM INJ 40 MG/0.4 ML DISP.SYRIN SUBCUT SCH (10:10)
[2020-07-02] MEDS: TIMOLOL MALEATE 0.5% OPH SOLN 5 ML OU SCH (10:11)
[2020-07-02] MEDS: METFORMIN HCL 500 MG TABLET PO SCH ×2 (11:23→17:08)
--- NOTE | 2020-07-02 18:00 | PDOC PROGRESS REPORT ---
Subjective Date:: 07/02/20 Subjective:: No chest pain or difficulty with breathing. No nausea, vomiting, or abdominal pa in. Patient had episode of hypoglycemia this morning with need for resuscitation and hold of her morning dose of Lantus insulin. Reason For Visit: DKA; DMT2; HTN Physical Exam Vital Signs: Temp Pulse Resp BP Pulse Ox 98.4 F 88 17 122/76 96 07/02/20 15:03 07/02/20 15:03 07/02/20 15:03 07/02/20 15:03 07/02/20 15:03 Intake & Output 07/01/20 07/02/20 07/03/20 06:59 06:59 06:59 Intake Total 3520 2820 1706 Balance 3520 2820 1706 Weight 71.3 kg 77 kg Physical Exam: General appearance: PRESENT: no acute distress Head exam: PRESENT: atraumatic, normocephalic Eye exam: PRESENT: conjunctiva pink ABSENT: pallor, sclera icterus Mouth exam: PRESENT: moist Neck exam: PRESENT: full ROM. Cardiovascular exam: PRESENT: RRR, +S1, +S2. ABSENT: diastolic murmur, rubs, systolic murmur GI/Abdominal exam: PRESENT: normal bowel sounds, soft. ABSENT: distended, guarding, mass, organomegaly, rebound, tenderness Extremities exam: ABSENT: pedal edema Neurological exam: PRESENT: alert, awake, oriented to person, oriented to place, oriented to time, oriented to situation Psychiatric exam: PRESENT: appropriate affect, normal mood. ABSENT: homicidal ideation, suicidal ideation Skin exam: PRESENT: dry, intact, warm. ABSENT: cyanosis, rash Results Laboratory Results: 06/29/20 04:36 06/29/20 04:36 06/25/20 06/25/20 09:50 09:50 Troponin I < 0.012 NT-Pro-B Natriuret Pep 119 Impressions: Chest CT 06/25/20 10:29 IMPRESSION: 1. No evidence of acute intrathoracic process. 2. 3.1 cm hypodense lesion within the right hepatic dome, indeterminate. Comparison with priors if available or multiphase CT or MR could be considered for complete characterization. Chest X-Ray 06/26/20 00:00 IMPRESSION: NO ACUTE RADIOGRAPHIC FINDING IN THE CHEST. Assessment & Plan - Diagnosis (1) DKA (diabetic ketoacidoses) Qualifiers: Diabetes mellitus type: type 2 Diabetes mellitus complication detail: without coma Qualified Code(s): E11.10 - Type 2 diabetes mellitus with ketoacidosis without coma Is this a current diagnosis for this admission?: Yes (2) Diabetes mellitus type 2 in nonobese Is this a current diagnosis for this admission?: Yes (3) HTN (hypertension) Qualifiers: Hypertension type: essential hypertension Qualified Code(s): I10 - Essential (primary) hypertension Is this a current diagnosis for this admission?: Yes (4) Glaucoma Qualifiers: Primary angle closure glaucoma type: unspecified type Laterality: bilateral Is this a current diagnosis for this admission?: Yes - Time Time Spent with patient: 25-34 minutes Level of Care: IMCU Medications reviewed and adjusted accordingly: Yes Anticipated discharge: Home Anticipated DC Timeframe: within 48 hours - Inpatient Certification Based on my medical assessment, after consideration of the patient's comorbidities, presenting symptoms, or acuity I expect that the services needed warrant INPATIENT care.: Yes I certify that my determination is in accordance with my understanding of Medicare's requirements for reasonable and necessary INPATIENT services [42 CFR 412.3e].: Yes Medical Necessity: Significant Comorbidiites Make Outpatient Treatment Too Risky, Need Close Monitoring Due to Risk of Patient Decompensation, Need For IV Fluids, Need For Continuous Telemetry Monitoring, Risk of Complication if Not Cared For in Hospital, Risk of Diagnosis Which Will Require Inpatient Eval/Care/Monitoring 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 Maintain on all other current medication management.
[2020-07-02] MEDS: SIMVASTATIN 10 MG TABLET PO SCH (21:20)
[2020-07-02] MEDS: LATANOPROST 0.005% OPH SOLN 2.5 ML OU SCH (21:21)
[2020-07-03] MEDS: PANTOPRAZOLE SODIUM 40 MG TABLET.DR PO SCH (05:12)
[2020-07-03] MEDS: INSULIN LISPRO 100 UNIT/ML 3 ML VIAL SUBCUT SCH ×2 (07:36→12:51)
[2020-07-03] MEDS: ENOXAPARIN SODIUM INJ 40 MG/0.4 ML DISP.SYRIN SUBCUT SCH (09:04)
[2020-07-03] MEDS: METFORMIN HCL 500 MG TABLET PO SCH (09:15)
[2020-07-03] MEDS: INSULIN GLARGINE,HUM.REC.ANLOG 1,000 UNIT/10 ML VIAL SUBCUT SCH (09:15)
[2020-07-03] MEDS: TIMOLOL MALEATE 0.5% OPH SOLN 5 ML OU SCH (09:22)
[2020-07-03 13:52] VITALS: BP 132/81
--- NOTE | 2020-07-03 19:20 | PDOC DISCHARGE SUMMARY ---
Impression - Admit/DC Date/PCP Admission Date/Primary Care Provider: 06/25/20 12:29 BETHEL ARCHER Discharge Date: 07/03/20 - Discharge Diagnosis (1) DKA (diabetic ketoacidoses) Is this a current diagnosis for this admission?: Yes (2) Diabetes mellitus type 2 in nonobese Is this a current diagnosis for this admission?: Yes (3) HTN (hypertension) Is this a current diagnosis for this admission?: Yes (4) Glaucoma Is this a current diagnosis for this admission?: Yes (5) Hyperlipidemia associated with type 2 diabetes mellitus Is this a current diagnosis for this admission?: Yes (6) Probable sepsis Is this a current diagnosis for this admission?: Yes - Assessment Summary: Patient was admitted for diabetic ketoacidosis and managed with IV insulin infusion as well as IV fluid. She was eventually transition to subcutaneous insulin management with oral preadmission diabetic medication. She was managed for Strep Anginosus group bacteremia with IV Cefepime with resolution of her associated presenting symptoms. Her glycemic control was adequate on current insulin regimen with preadmission Metformin 1000 mg po bid. Her financial limitation played significant role in the preadmission management of the patient and will continue to impact in her post acute care period. In light of this she will be discharged home on NPH Insulin and Metformin through local [facility] where the later is free and the former is reasonably priced for the patient to afford procurement of her medication. She will follow up in the office as instructed upon discharge. - Additional Information Resuscitation Status: Full Code Discharge Diet: Cardiac, Diabetic Discharge Activity: Activity As Tolerated Referrals: BETHEL ARCHER MD [Primary Care Provider] - 07/09/20 2:00 pm Prescriptions: Metformin HCl [Glucophage 500 mg Tablet] 2 tab PO BIDACBS #120 tab Hum Insulin NPH/Reg Insulin Hm [Insulin 70-30 (NPH/Reg) 100 unit/mL] 15 unit SUBCUT BIDACBS #10 ml Syringe and Needle,Insulin,1Ml [Insulin Syringe 1 mL] 1 syr SUBCUT BIDACBS #100 syringe Home Medications: Lisinopril/Hydrochlorothiazide [Lisinopril-Hctz 10-12.5 mg Tab] 1 each PO DAILY 08/14/14 Simvastatin 20 mg PO QHS 08/14/14 Latanoprost [Xalatan 0.005% Oph Soln 2.5 ml] 1 drop OU QHS 06/25/20 Loratadine [Claritin] 10 mg PO DAILY 06/25/20 Timolol Maleate/Pf [Timolol Maleate 0.5% Eye Drop] 1 drop OU DAILY 06/25/20 Hum Insulin NPH/Reg Insulin Hm [Insulin 70-30 (NPH/Reg) 100 unit/mL] 15 unit SUBCUT BIDACBS #10 ml 07/03/20 Metformin HCl [Glucophage 500 mg Tablet] 2 tab PO BIDACBS #120 tab 07/03/20 Syringe and Needle,Insulin,1Ml [Insulin Syringe 1 mL] 1 syr SUBCUT BIDACBS #100 syringe 07/03/20 History of Present Illiness History of Present Illness: PIETER FAUSTIN is a 59 year old female patient known to my practice but noncompliant with follow up management evaluation for hypertension and diabetes mellitus type 2 last seen in the office June,. She presented to the ED with several days of worsening generalized weakness, fatigue, nausea, and diarrhea. She denied any definite abdominal pain or associated vomiting. No fever or chills. No dysuria, urinary frequency, hematuria, or flank pain. She denied any chest pain but reported shortness of breath that worsen with efforts and improved with rest. She denied any palpitation. She denied any cough, nasal or sinus congestion. No associated headache or dizziness but admitted to redness of her eyes that she related to her eye condition for which she is currently using prescribed eye drops. Her initial ED evaluation was significant for severe hyperglycemia with elevated anion gap suggestive diabetic ketoacidosis. There was associated elevated lactic acidosis, electrolyte derangement, leukocytosis, and abnormal urinalysis. She denied exposure to person with acute illness or exposure to COVID-19. Her rapid COVID-19 serology evaluation was reported negative. She was advised hospitalization for further evaluation and management. Her morbidities are as listed below. Hospital Course Hospital Course: Patient was admitted for diabetic ketoacidosis and managed with IV insulin infusion as well as IV fluid. She was eventually transition to subcutaneous insulin management with oral preadmission diabetic medication. She was managed for Strep Anginosus group bacteremia with IV Cefepime with resolution of her associated presenting symptoms. Her glycemic control was adequate on current insulin regimen with preadmission Metformin 1000 mg po bid. Her financial limitation played significant role in the preadmission management of the patient and will continue to impact in her post acute care period. In light of this she will be discharged home on NPH Insulin and Metformin through local [facility] where the later is free and the former is reasonably priced for the patient to afford procurement of her medication. She will follow up in the office as instructed upon discharge. Physical Exam Vital Signs: Temp Pulse Resp BP Pulse Ox 98.2 F 80 18 108/83 99 07/03/20 11:07 07/03/20 11:07 07/03/20 11:07 07/03/20 11:07 07/03/20 11:07 Intake & Output 07/02/20 07/03/20 07/04/20 06:59 06:59 06:59 Intake Total 2820 2936 50 Balance 2820 2936 50 Weight 77 kg 73.6 kg Results Laboratory Results: WBC 7.9 10^3/uL (4.0-10.5) 06/29/20 04:36 RBC 3.97 10^6/uL (3.72-5.28) 06/29/20 04:36 Hgb 12.0 g/dL (12.0-15.5) D 06/29/20 04:36 Hct 36.2 % (36.0-47.0) 06/29/20 04:36 MCV 91 fl (80-97) 06/29/20 04:36 MCH 30.2 pg (27.0-33.4) 06/29/20 04:36 MCHC 33.1 g/dL (32.0-36.0) 06/29/20 04:36 RDW 14.3 % (11.5-14.0) H 06/29/20 04:36 Plt Count 146 10^3/uL (150-450) L 06/29/20 04:36 Lymph % (Auto) 41.5 % (13-45) 06/29/20 04:36 Ada % (Auto) 4.4 % (3-13) 06/29/20 04:36 Eos % (Auto) 2.3 % (0-6) 06/29/20 04:36 Baso % (Auto) 0.6 % (0-2) 06/29/20 04:36 Absolute Neuts (auto) 4.0 10^3/uL (1.7-8.2) 06/29/20 04:36 Absolute Lymphs (auto) 3.3 10^3/uL (0.5-4.7) 06/29/20 04:36 Absolute Monos (auto) 0.4 10^3/uL (0.1-1.4) 06/29/20 04:36 Absolute Eos (auto) 0.2 10^3/uL (0.0-0.6) 06/29/20 04:36 Absolute Basos (auto) 0.0 10^3/uL (0.0-0.2) 06/29/20 04:36 Seg Neutrophils % 51.2 % (42-78) 06/29/20 04:36 VBG pH 7.38 (7.30-7.42) 06/25/20 09:50 VBG pCO2 40.8 mmHg (35-63) 06/25/20 09:50 VBG HCO3 23.5 mmol/L (20-32) 06/25/20 09:50 VBG Base Excess -1.5 mmol/L 06/25/20 09:50 Sodium 140.9 mmol/L (137-145) 06/29/20 04:36 Potassium 3.6 mmol/L (3.6-5.0) 06/29/20 04:36 Chloride 112 mmol/L (98-107) H 06/29/20 04:36 Carbon Dioxide 23 mmol/L (22-30) 06/29/20 04:36 Anion Gap 6 (5-19) 06/29/20 04:36 BUN 16 mg/dL (7-20) 06/29/20 04:36 Creatinine 0.41 mg/dL (0.52-1.25) L 06/29/20 04:36 Est GFR ( Amer) > 60 (>60) 06/29/20 04:36 Est GFR (MDRD) Non-Af > 60 (>60) 06/29/20 04:36 Glucose 161 mg/dL (75-110) H 06/29/20 04:36 POC Glucose 160 mg/dL (70-110) H 07/03/20 11:08 Hemoglobin A1c % > 14.0 % (4.7-6.0) H 06/26/20 08:29 Lactic Acid 1.3 mmol/L (0.7-2.1) 06/25/20 16:05 Calcium 8.3 mg/dL (8.4-10.2) L 06/29/20 04:36 Magnesium 2.7 mg/dL (1.6-2.3) H 06/25/20 23:40 Total Bilirubin 0.9 mg/dL (0.2-1.3) 06/29/20 04:36 Direct Bilirubin 0.2 mg/dL (0.0-0.4) 06/29/20 04:36 Neonat Total Bilirubin Not Reportable 06/29/20 04:36 Neonat Direct Bilirubin Not Reportable 06/29/20 04:36 Neonat Indirect Bili Not Reportable 06/29/20 04:36 AST 20 U/L (14-36) 06/29/20 04:36 ALT 23 U/L (<35) 06/29/20 04:36 Alkaline Phosphatase 90 U/L (38-126) 06/29/20 04:36 Troponin I < 0.012 ng/mL 06/25/20 09:50 NT-Pro-B Natriuret Pep 119 pg/mL (<125) 06/25/20 09:50 Total Protein 5.4 g/dL (6.3-8.2) L 06/29/20 04:36 Albumin 2.6 g/dL (3.5-5.0) L 06/29/20 04:36 Triglycerides 116 mg/dL (<150) 06/26/20 05:02 Cholesterol 259.40 mg/dL (0-200) H 06/26/20 05:02 LDL Cholesterol Direct 206 mg/dL (<100) H 06/26/20 05:02 VLDL Cholesterol 23.0 mg/dL (10-31) 06/26/20 05:02 HDL Cholesterol 59 mg/dL (>40) 06/26/20 05:02 Urine Color LIGHT YELLOW 06/25/20 11:37 Urine Appearance CLEAR 06/25/20 11:37 Urine pH 6.0 (5.0-9.0) 06/25/20 11:37 Ur Specific [place] 1.038 06/25/20 11:37 Urine Protein NEGATIVE mg/dL (NEGATIVE) 06/25/20 11:37 Urine Glucose (UA) >=1000 mg/dL (NEGATIVE) H 06/25/20 11:37 Urine Ketones 100 mg/dL (NEGATIVE) H 06/25/20 11:37 Urine Blood NEGATIVE (NEGATIVE) 06/25/20 11:37 Urine Nitrite (Reflex) NEGATIVE (NEGATIVE) 06/25/20 11:37 Urine Bilirubin NEGATIVE (NEGATIVE) 06/25/20 11:37 Urine Urobilinogen NEGATIVE mg/dL (<2.0) 06/25/20 11:37 Leukocyte Esterase Rfl NEGATIVE (NEGATIVE) 06/25/20 11:37 Urine RBC 0-1 /HPF 06/25/20 11:37 Urine WBC 0-1 /HPF 06/25/20 11:37 Ur Squamous Epith Cells FEW /HPF 06/25/20 11:37 Urine Ascorbic Acid NEGATIVE (NEGATIVE) 06/25/20 11:37 COVID-19 Source Cancelled 06/25/20 09:50 COVID-19 (JAMIE) Cancelled 06/25/20 09:50 Influenza A (Rapid) Cancelled 06/25/20 10:25 Influenza A (RT-PCR) NEGATIVE (NEGATIVE) 06/25/20 10:25 Influenza B (Rapid) Cancelled 06/25/20 10:25 Influenza B (RT-PCR) NEGATIVE (NEGATIVE) 06/25/20 10:25 RSV (RT-PCR) NEGATIVE (NEGATIVE) 06/25/20 10:25 SARS-CoV-2 Rap RNA(RT-PCR) NEGATIVE (NEGATIVE) 06/25/20 10:25 06/25/20 06/25/20 09:50 09:50 Troponin I < 0.012 NT-Pro-B Natriuret Pep 119 Impressions: Chest X-Ray 06/25/20 09:35 IMPRESSION: NO ACUTE RADIOGRAPHIC FINDING IN THE CHEST. Chest CT 06/25/20 10:29 IMPRESSION: 1. No evidence of acute intrathoracic process. 2. 3.1 cm hypodense lesion within the right hepatic dome, indeterminate. Comparison with priors if available or multiphase CT or MR could be considered for complete characterization. Chest X-Ray 06/26/20 00:00 IMPRESSION: NO ACUTE RADIOGRAPHIC FINDING IN THE CHEST. Plan Health Concerns: Compliance with medication administration and dietary restriction in the management of her diabetes mellitus. Plan of Treatment: Assist with improving her socioeconomic impact through medicaid assistance for prescription coverage. close community follow up and education on self management for diabetes through [facility] education classes. Goals: Reduce high readmission risk. Time Spent: Greater than 30 Minutes - I had extensive discussion with patient at bedside regarding post acute care plan during this visit and provide resources to reach to the medicaid program and the pharmacy. Stroke Is this a Stroke Patient?: No Acute Heart Failure Is this a Heart Failure Patient?: No
== END 2020-07-03 14:20 | disposition home or self-care (01) | DRG 638 ==
LOC: ER 09:17 → EH 12:29 → 5 13:37
PROVIDERS: ADMIT Internal Medicine Geriatric Medicine; ATTEND Internal Medicine Geriatric Medicine
DX: E11.10 Type 2 diabetes mellitus with ketoacidosis without coma (principal); R78.81 Bacteremia; I10 Essential (primary) hypertension; Z20.828 Contact with and (suspected) exposure to other viral communicable diseases; E78.5 Hyperlipidemia, unspecified; B95.1 Streptococcus, group B, as the cause of diseases classified elsewhere; E11.39 Type 2 diabetes mellitus with other diabetic ophthalmic complication; H42 Glaucoma in diseases classified elsewhere; Z91.14 Patient's other noncompliance with medication regimen; Z79.84 Long term (current) use of oral hypoglycemic drugs
CPT/HCPCS: 36415; 71045; 71046; 71250; 80053; 80061; 81001; 82803; 82962; 83036; 83605; 83735; 83880; 84484; 85025; 87040; 87070; 87077; 87150; 87186; 93005; 93010; 96361; 96374; 99291; 0241U; C9803; J0692; J1650; J1815; J3490; J7030